=== PATIENT | female | born 1990 | race Caucasian/White ===

== ENCOUNTER 2018-04-12 20:35 | Emergency (ER) | payer BC, OTHER ==
[2018-04-12] MEDS ORDERED: HYDROCODONE/APAP 7.5/325 MG TAB ONE (21:18)
--- NOTE | 2018-04-12 21:33 | EDPHYS ---
Physician Documentation [facility] Name: Steffi Dee Age: 27 yrs Sex: Female : 1990 Arrival Date: 04/12/2018 Time: 20:36 Bed 30 Private MD: ED Physician Kings Jasso HPI: 04/12 21:29 This 27 yrs old Female presents to ER via Wheelchair with complaints of Ankle jr8 Injury, Knee Injury. 21:29 The patient presents with decreased range of motion, pain, swelling, tenderness. The jr8 complaints affect the left ankle. Onset: The symptoms/episode began/occurred acutely, today. Context: The problem was sustained at home, resulted from a mis-step by the patient, on a curb, The mechanism of injury involved inversion of the affected ankle. Associated signs and symptoms: The patient has no apparent associated signs or symptoms. Modifying factors: The symptoms are alleviated by nothing, the symptoms are aggravated by weight bearing, movement. Severity of symptoms: At their worst the symptoms were mild, in the emergency department the symptoms are unchanged. The patient has not experienced similar symptoms in the past. The patient has not recently seen a physician. Stated that coming off of step area inverted ankle and fell causing scrape to right knee. Pain to left ankle and knee . 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 - Social history:: Smoking status: Patient/guardian denies using tobacco. - Ebola Screening: : Patient negative for fever greater than or equal to 101.5 degrees Fahrenheit, and additional compatible Ebola Virus Disease symptoms Patient denies exposure to infectious person Patient denies travel to an Ebola-affected area in the 21 days before illness onset No symptoms or risks identified at this time. ROS: 21:29 Eyes: Negative for injury, pain, redness, and discharge, ENT: Negative for injury, jr8 pain, and discharge, Neck: Negative for injury, pain, and swelling, Cardiovascular: Negative for chest pain, palpitations, and edema, Respiratory: Negative for shortness of breath, cough, wheezing, and pleuritic chest pain, Abdomen/GI: Negative for abdominal pain, nausea, vomiting, diarrhea, and constipation, Back: Negative for injury and pain, Skin: Negative for injury, rash, and discoloration, Neuro: Negative for headache, weakness, numbness, tingling, and seizure. 21:29 MS/extremity: Positive for abrasion, pain, swelling, tenderness, of the right knee and left lateral ankle. Exam: 21:29 Eyes: Pupils equal round and reactive to light, extra-ocular motions intact. Lids and jr8 lashes normal. Conjunctiva and sclera are non-icteric and not injected. Cornea within normal limits. Periorbital areas with no swelling, redness, or edema. ENT: Nares patent. No nasal discharge, no septal abnormalities noted. Tympanic membranes are normal and external auditory canals are clear. Oropharynx with no redness, swelling, or masses, exudates, or evidence of obstruction, uvula midline. Mucous membranes moist. Neck: Trachea midline, no thyromegaly or masses palpated, and no cervical lymphadenopathy. Supple, full range of motion without nuchal rigidity, or vertebral point tenderness. No Meningismus. Cardiovascular: Regular rate and rhythm with a normal S1 and S2. No gallops, murmurs, or rubs. Normal PMI, no JVD. No pulse deficits. Respiratory: Lungs have equal breath sounds bilaterally, clear to auscultation and percussion. No rales, rhonchi or wheezes noted. No increased work of breathing, no retractions or nasal flaring. Abdomen/GI: Soft, non-tender, with normal bowel sounds. No distension or tympany. No guarding or rebound. No evidence of tenderness throughout. Back: No spinal tenderness. No costovertebral tenderness. Full range of motion. Skin: Warm, dry with normal turgor. Normal color with no rashes, no lesions, and no evidence of cellulitis. Neuro: Awake and alert, GCS 15, oriented to person, place, time, and situation. Cranial nerves II-XII grossly intact. Motor strength 5/5 in all extremities. Sensory grossly intact. Cerebellar exam normal. Normal gait. 21:29 Musculoskeletal/extremity: Extremities: grossly normal except: noted in the right knee: abrasion, noted in the left lateral ankle: pain, swelling, tenderness, ROM: intact in all extremities, full active range of motion, full passive range of motion, limited active range of motion due to pain, limited passive range of motion due to pain, Circulation is intact in all extremities. Sensation intact. Vital Signs: 20:43 BP 96 / 56; Pulse 98; Resp 18; Temp 98.3; Pulse Ox 98% on R/A; Weight 77.11 kg; Height aj 5 ft. 2 in. (157.48 cm); 22:09 BP 100 / 60; Pulse 90; Resp 18; Pulse Ox 98% on R/A; Pain 0/10; mg2 20:43 Body Mass Index 31.09 (77.11 kg, 157.48 cm) Procedures: 21:29 Splinting: Splint applied to left lateral ankle using juan wrap, applied by nurse. jr8 Examined by me, post splint application: neurovascular intact, 2+ distal pulses palpable, brisk capillary refill noted, Patient tolerated well. Crutch training provided to patient and/or family. Return demonstration given. MDM: 20:47 Patient medically screened. jr8 21:32 Data reviewed: vital signs, nurses notes, radiologic studies, plain films, and as a jr8 result, I will discharge patient. Data interpreted: Pulse oximetry: on room air is 98 %. Interpretation: normal. Counseling: I had a detailed discussion with the patient and/or guardian regarding: the historical points, exam findings, and any diagnostic results supporting the discharge/admit diagnosis, radiology results, the need for outpatient follow up, a orthopedic surgeon, to return to the emergency department if symptoms worsen or persist or if there are any questions or concerns that arise at home. 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 Lot #: [id number]. } Route: IM; Site: left deltoid; 22:08 Follow up: Response: No adverse reaction; Medication administered at discharge. mg2 Disposition: 04/13 06:29 Co-signature as Attending Physician, Kings Jasso MD I agree with the assessment and higinio plan of care. Disposition: 04/12/18 21:32 Discharged to Home. Impression: Sprain of ankle, Abrasion, right knee. - Condition is Stable. - Discharge Instructions: Ankle Sprain. - Prescriptions for Ibuprofen 800 mg Oral Tablet - take 1 tablet by ORAL route every 12 hours As needed take with food; 20 tablet. - Medication Reconciliation Form, Thank You Letter, Antibiotic Education, Prescription Opioid Use form. - Follow up: Michele Atwood MD; When: 7 - 10 days; Reason: If symptoms return, Recheck today's complaints, Continuance of care, Re-evaluation by your physician. - Problem is new. - Symptoms have improved. Signatures: Dispatcher [employer] EDMS Reema Palomo RN RN aj Anderson, Corey, MD MD cha Roszak, Josh, PA PA jr8 Naye Hughes RN RN tl3 García Nowak RN RN mg2 Corrections: (The following items were deleted from the chart) 04/12 22:12 21:32 04/12/2018 21:32 Discharged to Home. Impression: Sprain of ankle; Abrasion, right mg2 knee. Condition is Stable. Forms are Medication Reconciliation Form, Thank You Letter, Antibiotic Education, Prescription Opioid Use. Follow up: Michele Atwood; When: 7 - 10 days; Reason: If symptoms return, Recheck today's complaints, Continuance of care, Re-evaluation by your physician. Problem is new. Symptoms have improved. jr8
--- NOTE | 2018-04-12 21:33 | ER ---
Nurse's Notes [facility] Name: Steffi Dee Age: 27 yrs Sex: Female : 1990 Arrival Date: 04/12/2018 Time: 20:36 Bed 30 Private MD: Diagnosis: Sprain of ankle;Abrasion, right knee Presentation: 04/12 20:42 Presenting complaint: Patient states: Reports falling while walking down stairs and aj twisting left ankle. Also has abrasion noted to right knee. Transition of care: patient was not received from another setting of care. Onset of symptoms was April 12, 2018. Risk Assessment: Do you want to hurt yourself or someone else? Patient reports no desire to harm self or others. Initial Sepsis Screen: Does the patient meet any 2 criteria? No. Patient's initial sepsis screen is negative. Does the patient have a suspected source of infection? No. Patient's initial sepsis screen is negative. Care prior to arrival: None. 20:42 Method Of Arrival: Wheelchair aj 20:42 Acuity: ERVIN 4 aj Triage Assessment: 20:43 General: Appears in no apparent distress. comfortable, Behavior is calm, cooperative, aj appropriate for age. Pain: Complains of pain in right knee and left lateral ankle. Neuro: Level of Consciousness is awake, alert, obeys commands, Oriented to person, place, time, situation, Appropriate for age. Respiratory: Airway is patent Respiratory effort is even, unlabored, Respiratory pattern is regular, symmetrical. Derm: Skin is intact, is healthy with good turgor, Skin is pink, warm \T\ dry. normal. Musculoskeletal: Range of motion: intact in all extremities, Reports pain in right knee and left lateral ankle. 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 - Social history:: Smoking status: Patient/guardian denies using tobacco. - Ebola Screening: : Patient negative for fever greater than or equal to 101.5 degrees Fahrenheit, and additional compatible Ebola Virus Disease symptoms Patient denies exposure to infectious person Patient denies travel to an Ebola-affected area in the 21 days before illness onset No symptoms or risks identified at this time. Screenin:09 Abuse screen: Denies threats or abuse. Nutritional screening: No deficits noted. tl3 Tuberculosis screening: No symptoms or risk factors identified. Fall Risk None identified. Assessment: 21:09 General: Appears in no apparent distress. well groomed, well developed, well nourished, tl3 Behavior is calm, cooperative, appropriate for age. Pain: Complains of pain in left leg and right leg and right knee and left lateral ankle. Neuro: Level of Consciousness is awake, alert, obeys commands. Cardiovascular: Patient's skin is warm and dry. Respiratory: Airway is patent. GI: No signs and/or symptoms were reported involving the gastrointestinal system. : No signs and/or symptoms were reported regarding the genitourinary system. EENT: No signs and/or symptoms were reported regarding the EENT system. Derm: No signs and/or symptoms reported regarding the dermatologic system. Musculoskeletal: Reports pain in right knee and left lateral ankle. Vital Signs: 20:43 BP 96 / 56; Pulse 98; Resp 18; Temp 98.3; Pulse Ox 98% on R/A; Weight 77.11 kg; Height aj 5 ft. 2 in. (157.48 cm); 22:09 BP 100 / 60; Pulse 90; Resp 18; Pulse Ox 98% on R/A; Pain 0/10; mg2 20:43 Body Mass Index 31.09 (77.11 kg, 157.48 cm) aj ED Course: 20:36 Patient arrived in ED. al2 20:43 Triage completed. aj 20:43 Arm band placed on left wrist. Patient placed in an exam room. aj 20:45 Naye Hughes, ELI is Primary Nurse. tl3 20:47 Ac Fajardo PA is PHCP. jr8 20:47 Kings Jasso MD is Attending Physician. jr8 21:09 Patient has correct armband on for positive identification. tl3 21:09 No provider procedures requiring assistance completed. Patient did not have IV access tl3 during this emergency room visit. 21:32 Michele Atwood MD is Referral Physician. jr8 22:10 Crutch training done. Juan wrap to right knee and left lateral ankle. Wound care: to mg2 abrasion, located on right knee was cleaned with Betadine, dressed with Neosporin, band aid. 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 Lot #: [id number]. } Route: IM; Site: left deltoid; 22:08 Follow up: Response: No adverse reaction; Medication administered at discharge. mg2 Outcome: 21:32 Discharge ordered by . cassandra 22:11 Discharged to home via wheelchair, with family. mg2 22:11 Condition: stable 22:11 Discharge instructions given to patient, family, Instructed on discharge instructions, follow up and referral plans. medication usage, crutch walking, Demonstrated understanding of instructions, follow-up care, medications, crutch walking, Prescriptions given X 1. 22:12 Patient left the ED. mg2 Signatures: Reema Palomo, RN RN Ac Card PA PA jr8 Aimee Oliva Tammy, RN RN tl3 García Nowak RN RN mg2
--- NOTE | 2018-04-12 21:40 | RAD REPORT ---
EXAM DESCRIPTION: RAD - Ankle Left 3 View -04/12/2018 9:28 pm CLINICAL HISTORY: Left ankle pain status post injury FINDINGS: No fracture or dislocation is seen. Soft tissue swelling is present
[2018-04-12] MEDS ORDERED: TETANUS & DIPHTHERIA TOX,ADULT 0.5 ML VIAL ONE (21:58)
== END 2018-04-12 22:12 | disposition home or self-care (01) ==
LOC: ER 20:35
DX: S93.402A Sprain of unspecified ligament of left ankle, initial encounter (principal); S80.211A Abrasion, right knee, initial encounter; W10.1XXA Fall (on)(from) sidewalk curb, initial encounter; Y92.008 Other place in unspecified non-institutional (private) residence as the place of occurrence of the external cause; Z23 Encounter for immunization
CPT/HCPCS: 90714; 99284